=== PATIENT | female | born 1985 | race African-American/Black ===

== ENCOUNTER 2023-11-27 15:13 | Emergency (ER) | payer SELFPAY ==
[~2023-11-27] VITALS: Ht 162.6 cm; Wt 77.0 kg
[2023-11-27 15:22] VITALS: O2SAT 100
[2023-11-27] MEDS ORDERED: ACETAMINOPHEN WITH CODEINE 300/30MG TABLET PO STA (16:03)
[2023-11-27] MEDS: KETOROLAC 30MG/ML VIAL IM STA (16:03)
[2023-11-27] MEDS ORDERED: NAPR-681 PO (18:06)
[2023-11-27] MEDS ORDERED: CYCL5TAB PO (18:06)
[2023-11-27] MEDS: ACETAMINOPHEN WITH CODEINE 300/30MG TABLET PO NR (19:05)
[2023-11-27 20:00] VITALS: BP 136/78; PULSE 85; RESP 17; TEMP 36.61404; O2SAT 99
== END 2023-11-27 20:24 ==
LOC: ER 15:13
DX: S39.012A Strain of muscle, fascia and tendon of lower back, initial encounter (principal); X58.XXXA Exposure to other specified factors, initial encounter; Y93.89 Activity, other specified; Y92.89 Other specified places as the place of occurrence of the external cause; Y99.8 Other external cause status
CPT/HCPCS: 72100; 81025; 99283